=== PATIENT | female | born 1955 | race Caucasian/White ===

== ENCOUNTER → 2023-09-16 01:43 | Outpatient (CLI) | payer MEDICARE, SELFPAY ==
--- NOTE | 2023-09-16 07:30 | DI.US_ITS ---
Exam(s) US THYROID EXAM: US THYROID CLINICAL HISTORY: Assess for change,multinodular thyroid,e04.2. TECHNIQUE: Ultrasound thyroid performed using standard protocol. COMPARISON: US US THYROID from 10/08/2022 FINDINGS: ISTHMUS: 7 mm RIGHT LOBE: Size: 4.8 x 1.8 x 2.2 cm Echogenicity: Normal. Vascularity: Normal. Nodules: There are no nodules seen in the right thyroid gland that would warrant follow-up or biopsy. LEFT LOBE: Size: 4.9 x 2.6 x 1.9 cm Echogenicity: Normal. Vascularity: Normal. Nodules: There is a 2 x 1.6 x 1.3 cm nodule which is solid and isoechoic in the inferior aspect of th e left lobe. This was present on prior examinations. It is taller than wide. No echogenic foci are seen. There are smooth margins present. This is consistent with a TI rads 4 level nodule. Due to its size, FNA is recommended. There is a 1.0 x 0.5 x 0.5 cm solid hypoechoic nodule in the medial as pect of the left lower thyroid lobe. It is consistent with a TI rads 4 nodule. Due to its size, fol low-up is recommended. There are no other nodules seen in the left lobe that would warrant follow-up or biopsy. OTHER FINDINGS: None. IMPRESSION: 1. 2 x 1.6 x 1.3 cm nodule in the inferior left lobe of the thyroid gland. Due to its size and TI ra ds level, FNA is recommended. 2. 1 x 0.5 x 0.5 cm hypoechoic nodule in the left thyroid lobe. Due to its size and TI rads level, f ollow-up is recommended. DATA REPOSITORY:
== END ==
PROVIDERS: PCP Nurse Practitioner Family; Visit Provider Otolaryngology
DX: E04.2 Nontoxic multinodular goiter (principal)
CPT/HCPCS: 76536

== ENCOUNTER → 2023-10-05 03:07 | Outpatient (CLI) | payer MEDICARE, SELFPAY ==
--- NOTE | 2023-10-05 07:15 | DI.US_ITS ---
Exam(s) US NEEDLE LOCAL OTHER WO RAD EXAM: THYROID NODULE, ULTRASOUND GUIDED BX,E04.2 COMPARISON: No exams were available for comparison TECHNIQUE: Ultrasound performed using standard protocol. FINDINGS: Sonography was provided for Dr. Ansari during the performance of a left thyroid biopsy. Please refe r to the procedure report for complete details. DATA REPOSITORY:
--- NOTE | 2023-10-05 11:45 | PAPNONF_PTH ---
PATIENT: Mayte Keller LOC: [facility] U#:[id number] AGE/SX: 70/F ROOM: RE10/05/[address]: Deion Ansari MD : [id number] BED: DIS: SPEC #: [id number] RECD: 10/05/23 13:01 STATUS: ADALIDYessenia RE #: [id number] YENNY: 10/05/23 11:[address]: Deion Ansari DEPT: [facility] Cytology RECD BY: Grazyna Lester ENTERED: 10/05/23 13:03 SP TYPE: ACE HILL DR: Ila Akhtar Tissues: 1 - BODY FLUID CYTO-FINE NEEDLE ASPIRATE-[facility] Procedures: BODY FLUID CYTO-FINE NEEDLE ASPIRATE-[facility] Comments: [id number] (PATH FNA CONSULT) (REFRIGERATED)
--- NOTE | 2023-10-05 11:57 | OPPNE_ITS ---
Date of service: 10/05/23 Time of Service: 11:58 Procedure Note Date of procedure: 10/05/23 Procedure: Ultrasound-guided FNA, left thyroid nodule, pathology present Surgeon/Proceduralist/Physician: Deion Ansari Procedure Diagnosis: Left thyroid nodule meeting criteria for biopsy Procedure Indications: Patient with a left-sided thyroid nodule that meets criteria for biopsy. Op tions were explained to the patient and she elected to undergo the above procedure. Consent was filled out and signed prior to procedure. Risks including bleeding, infection, need for further treatment, and discomfort were discussed at length. Procedure Description: The patient was positioned in supine position with her neck slightly extended. Ultrasound was used to localize the left inferior thyroid nodule and then the patient was prepped and draped in appropriate fashion. 1% lidocaine with 1/100,000 epinephrine was injected in the skin and subcutaneous tissues overlying the nodule and then a 25-gauge needle passed repeatedly into the thyroid nodule. 2 passes were necessary to reach cellular adequacy. This was verified by pathology. Once this is been accomplished, 2 additional passes were made for potential Afirma testing. After ensuring adequate hemostasis, a sterile dressing was applied and the patient was allowed to sit and stand and ambulate. Her vital signs remained stable. She will remove the bandage tonight and not replace it. She will call with any signs of infection or any concerns. She will use ibuprofen or Tylenol for any discomfort. She will call if she does not hear from me within 1 week with regard to pathology. She had no further questions. She is comfortable with this plan.
== END ==
PROVIDERS: PCP Nurse Practitioner Family; Visit Provider Otolaryngology
DX: E04.2 Nontoxic multinodular goiter (principal)
CPT/HCPCS: 10005; 76942; 88104